=== PATIENT | male | born 1975 | race African-American/Black ===

== ENCOUNTER 2020-05-22 03:57 | Emergency (ER) | payer OTHER ==
[~2020-05-22] VITALS: Ht 167.6 cm; Wt 102.0 kg
[2020-05-22 04:02] VITALS: BP 165/89
--- NOTE | 2020-05-22 04:23 | RAD ---
Examination: 3 views of the right foot HISTORY: History of right foot pain COMPARISON: None available FINDINGS: The alignment of the tarsal bones, tarsometatarsal, metatarsophalangeal, interphalangeal joints grossly appears unremarkable. There is no obvious acute fracture identified. Old fracture of the second metatarsal identified. IMPRESSION: No acute osseous findings. Electronically signed by: Omega Christine MD (05/22/2020 4:20 AM) [id number]
[2020-05-22] MEDS ORDERED: DICL50TA4 PO (04:31)
[2020-05-22] MEDS ORDERED: TRAM50TA PO (04:31)
--- NOTE | 2020-05-22 04:31 | PHYS DOC ---
Past Medical History Past Medical History: No Pertinent History Past Surgical History: No Surgical History Smoking Status: Never Smoker Alcohol Use: None General Adult EDM: Chief Complaint: FOOT INJURY PAIN HPI: HPI: Patient is a 45 year old male who presents with complaint of right foot pain this been going on for the last few days but today it is gotten a lot worse. 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 Patient indicates that he has had no injury but states the foot is very painful, especially with weightbearing. [] Review of Systems: Review of Systems: Constitutional: Denies fever or chills. [] Respiratory: Denies cough or shortness of breath. [] Cardiovascular: Denies chest pain or edema. [] Musculoskeletal: Positive right foot pain. [] Integument: Denies rash. [] Neurologic: Denies headache, focal weakness or sensory changes. [] Heart Score: Risk Factors: Risk Factors: DM, Current or recent (<one month) smoker, HTN, HLP, family history of CAD, obesity. Risk Scores: Score 0 - 3: 2.5% MACE over next 6 weeks - Discharge Home Score 4 - 6: 20.3% MACE over next 6 weeks - Admit for Clinical Observation Score 7 - 10: 72.7% MACE over next 6 weeks - Early Invasive Strategies Allergies: Allergies: Allergies Coded Allergies Type Severity Reaction Last Updated Verified No Known Drug Allergies 05/22/20 No Physical Exam: PE: Constitutional: Well developed, well nourished, no acute distress, non-toxic appearance. [] Cardiovascular: Regular rate and rhythm [] Lungs & Thorax: Bilateral breath sounds clear to auscultation [] Extremities: Examination of right foot demonstrates very flat foot with no arch. There is some mild soft tissue swelling overlying the fourth and fifth metatarsals with tenderness to palpation of this region. [] Neurologic: Alert and oriented X 3, normal motor function, normal sensory function, no focal deficits noted. [] Current Patient Data: Vital Signs: Vital Signs Date Time Temp Pulse Resp B/P (MAP) Pulse Ox O2 Delivery O2 Flow Rate FiO2 05/22/20 04:02 97.5 90 18 165/89 (114) 100 Room Air 97.5 EKG: EKG: [] Radiology/Procedures: Radiology/Procedures: [] Impression: PROCEDURE: FOOT RIGHT 3V Examination: 3 views of the right foot HISTORY: History of right foot pain COMPARISON: None available FINDINGS: The alignment of the tarsal bones, tarsometatarsal, metatarsophalangeal, interphalangeal joints grossly appears unremarkable. There is no obvious acute fracture identified. Old fracture of the second metatarsal identified. IMPRESSION: No acute osseous findings. Electronically signed by: Omega Christine MD (05/22/2020 4:20 AM) [id number] Course & Med Decision Making: Course & Med Decision Making Pertinent Labs and Imaging studies reviewed. (See chart for details) [] Dragon Disclaimer: Dragon Disclaimer: This electronic medical record was generated, in whole or in part, using a voice recognition dictation system. Departure Departure Impression: Primary Impression: Foot pain Qualified Codes: M79.671 - Pain in right foot Disposition: 01 HOME, SELF-CARE Condition: STABLE Patient Instructions: Foot Sprain Scripts Tramadol Hcl (TRAMADOL HCL) 50 Mg Tablet 50 MG PO Q6HRS PRN for PAIN, #12 TAB Prov: SILVANA LEONARDO Jr. DO 05/22/20 Diclofenac Sodium (DICLOFENAC SODIUM) 50 Mg Tablet.dr 1 TAB PO BID PRN for PAIN, #20 TAB Prov: SILVANA LEONARDO Jr. DO 05/22/20 Justicifation of Admission Dx: Justifications for Admission: Justification of Admission Dx: Comment: (Not applicable) SILVANA LEONARDO Jr. DO May 22, 2020 04:31
== END 2020-05-22 04:57 | disposition home or self-care (01) ==
LOC: ER 03:57
DX: M79.671 Pain in right foot (principal)
CPT/HCPCS: 73630; 99283